=== PATIENT | male | born 1935 | race Caucasian/White ===

== ENCOUNTER 2017-03-24 11:34 | Observation (INO) ==
--- NOTE | 2017-03-24 12:04 | Emergency Department Note ---
Weakness HPI - General Chief complaint: Weakness Stated complaint: Weakness Time Seen by Provider: 03/24/17 11:55 Source: patient Mode of arrival: EMS Limitations: no limitations - History of Present Illness HPI Narrative: Patient presents, unable to care for himself at home. Known discogenic back disease, and multiple surgeries. Has chronic neuropathy of the lower extremities. Unfortunately, 2 falls in the last several weeks. One which occurred yesterday, fall from toilet onto the floor. EMS, evaluation yesterday , chart reviewed. X-ray imaging negative at that time. Discharged to home with home health. Home health has not yet arrived, patient has been essentially in the same sitting position since he arrived home yesterday. Able to pass urine with a jimena Dakotah, able to use a bedpan but shifting his weight. Unable to Lift his R leg and R foot; states that this is new onset. Also feels generally weak. No fevers or chills, no shortness of breath or cough. No urinary symptoms. No hesitancy above his baseline. No loss of bowel control. Low back pain above his tailbone, dull ache; new compared to his usual low back pain. Taking Lyrica, no other meds. Retired longshoreman. unable to care for him at home, EMS called - Related Data Home Medications Medication Instructions Recorded Confirmed aspirin 81 mg chewable tablet 81 mg PO QDAY tab 02/26/15 03/09/17 bimatoprost 0.01 % eye drops 1 drp OPHTHALMIC QPM ml 02/26/15 03/09/17 timolol 0.5 % eye drops 1 drp OPHTHALMIC QDAY ml 02/26/15 03/09/17 bicalutamide 50 mg tablet 50 mg PO QDAY 05/22/15 03/09/17 Previous Rx's Medication Instructions Recorded Disability Parking Permit #1 each 10/14/15 albuterol sulfate HFA 90 180 mcg INHALATION Q6H PRN #18 g 10/20/16 mcg/actuation aerosol inhaler valsartan 80 mg tablet 80 mg PO QDAY 90 Days 01/10/17 pregabalin 75 mg capsule 75 mg PO TID 90 Days 02/13/17 triamterene 37.5 1 tab-cap PO QDAY 90 Days 02/13/17 mg-hydrochlorothiazide 25 mg capsule wheelchair See Dose Instructions .ROUTE 08/08/17 .MEDSUPPLY #1 each Bedside Commode #1 each 03/16/17 Wheelchair Seat Cushion #1 each 03/16/17 Allergies Allergy/AdvReac Type Severity Reaction Status Date / Time No Known Drug Allergies Allergy Verified 03/24/17 11:37 Review of Systems All systems ED: reviewed and negative except as stated. Past Medical History - Past Medical History Attestation: Yes: The following information was validated with the patient. Medical history: Reports: other (obesity; discogenic back disease) Surgical history ED: Reports: orthopedic, other, other (partial colectomy, cervical spine fusion; multiple lumbar disc surgeries) Family history: Reports: non-contributory - Social History smoking status: Former smoker Physical Exam - General Limitations: no limitations General appearance: alert, other (oderate pain behaviors, shifting in bed) - Head Head exam: atraumatic, normocephalic - Eye Eye exam: Present: normal appearance - ENT ENT exam: normal exam, mucous membranes moist - Neck Neck exam: Present: normal inspection. Absent: tenderness - Chest Chest inspection: Present: normal inspection - Respiratory Respiratory exam: Present: normal lung sounds bilaterally. Absent: respiratory distress - Cardiovascular Cardiovascular exam: Present: regular rate, normal rhythm - Abdominal Exam Abdominal exam: Present: soft. Absent: tenderness - Extremities Exam Extremities exam: Present: other (full range of motion hip and knee; flat deep tendon reflex at the right knee; 3/5 ight foot dorsiflexion, 5 out of 5 plantar flexion, intact left) - Neurological Exam Neurological exam: Present: alert, oriented X3, other (diffuse sensation lossright foot) - Psychiatric Psychiatric exam: Present: normal affect, anxious - Skin Skin exam: Present: warm, dry Course - Reevaluation(s) Reevaluation #1: patient with morbid obesity, profound weakness secondary to deconditioning, spinal stenosis severe withadvancedneurogenic claudication; now right ankle avulsion fracture with dorsal flexion weakness Requested case management for possible assistance with additional cares versus rehab placement Time: 14:00 Reevaluation #2: Patient discussed with Dr. Spencer for admission, willing on observational status, possible placement Monday to AC Time: 15:23 Vital Signs Temperature 97.8 F 03/24/17 11:34 Pulse Rate 63 03/24/17 11:34 Respiratory Rate 16 03/24/17 11:34 Blood Pressure 140/57 03/24/17 11:34 Pulse Oximetry (%) 92 03/24/17 11:34 Temperature 97.8 F 03/24/17 11:34 Pulse Rate 65 03/24/17 14:45 Respiratory Rate 16 03/24/17 11:34 Blood Pressure 135/62 03/24/17 14:01 Pulse Oximetry (%) 92 03/24/17 14:45 Weakness - Lab Data Lab results reviewed: Yes I reviewed the patient's lab results. Result diagrams: 03/24/17 12:12 Lab Results 03/24/17 03/24/17 Range/Units 12:12 12:12 WBC 11.1 H (4.5-11.0) K/mcL RBC 4.60 (4.50-5.90) M/mcL Hgb 13.2 L (13.5-16.5) g/dL Hct 40.2 L (41.0-55.0) % POC Hct 39.0 L (41.0-55.0) % MCV 87.4 (80.0-100.0) fL MCH 28.6 (26.0-34.0) pg MCHC 32.7 (31.0-36.0) g/dL RDW 13.7 (11.5-14.5) % Plt Count 189 (140-440) K/mcL MPV 10.6 H (7.4-10.4) fL Gran % 71.5 (38.0-78.0) % Lymph % (Auto) 20.3 (15.5-49.0) % Cherry % (Auto) 5.4 (1.0-12.0) % Eos % (Auto) 2.6 (0.0-7.0) % Baso % (Auto) 0.2 (0.0-2.0) % Gran # 7.9 (1.8-8.0) K/mcL Lymph # (Auto) 2.2 (1.5-4.8) K/mcL Cherry # (Auto) 0.6 (0.1-0.9) K/mcL Eos # (Auto) 0.3 (0.0-0.7) K/mcL Baso # (Auto) 0 (0.0-0.3) K/mcL POC Sodium 141 (133-145) mmol/L POC Potassium 3.7 (3.3-5.1) mmol/L POC Chloride 100 (96-108) mmol/L POC Total CO2 27 (22-30) mmol/L POC BUN 19 (8-23) mg/dl POC Creatinine 0.9 (0.7-1.2) mg/dl POC Glucose 115 H (70-105) mg/dL POC WB Ioniz Calcium 1.17 (1.16-1.32) mmol/L - Radiology Data Radiology results reviewed: Yes I reviewed the patient's radiology results. severest progressive spinal stenosi T12-L1 Avulsion fracture right ankle Disposition Pt seen by SHOE COVERER/PA only: No Clinical Impression: Weakness generalized, Right foot drop, Spinal stenosis of lumbar region, Neurogenic claudication Avulsion fracture of right ankle Qualifiers: Encounter type: initial encounter Fracture type: closed Qualified Code(s): S82.891A - Other fracture of right lower leg, initial encounter for closed fracture Obesity Qualifiers: Obesity type: unspecified obesity type Obesity classification: adult class 2 ( BMI 35 ? 39.9) Serious obesity comorbidity presence: unspecified whether serious comorbidity present Body mass index: BMI 38.0-38.9 Qualified Code(s): E66.9 - Obesity, unspecified; Z68.38 - Body mass index (BMI) 38.0-38.9, adult Peripheral neuropathy Qualifiers: Peripheral neuropathy type: polyneuropathy, unspecified Qualified Code(s): G62.9 - Polyneuropathy, unspecified Disposition: Xfer As Outpt/Obs ([facility]) Condition: Fair Additional Instructions: observation with therapy over the weekend; ankle splint in place possible LTAC placement Monday Referrals: Jony Christianson MD [Primary Care Provider] -
--- NOTE | 2017-03-24 13:42 | Cat Scan Report ---
CLINICAL INFORMATION:Reason for Exam:fall, R leg weakness, foot drop (subacute) COMPARISON: 08/21/06 FINDINGS: The spine was imaged without contrast from the mid T9-S2. Sagittal and coronal reformats were created. There is normal alignment and healing following prior discectomy with interbody and posterior fusion at L to three and L3-4. There lateral posterior pedicle screws connected with rods from L2 through L4. There are screw holes in the body of L5 following removal of old screws. Laminectomy has been performed at these levels and there is also some bone graft material.. Severe disc space narrowing is present at L5-S1. There are medium-sized spurs along the posterior border that this protruding into the central canal. There is also moderate arthritis in the facets. There is moderate central canal and severe bilateral neural foraminal stenosis. Moderate disc space narrowing is present at L1-2 there is a large amount of gas in the nucleus pulposus. There is a posterior bulge and moderate arthritis in the facets causing moderate central canal stenosis. The T12-L1 disc is severely narrowed and degenerated and there is small amount gas in the disc. Posteriorly there is a ring of spurs and small ulcer. Moderate arthritis is present in the facets. There is severe spinal canal stenosis. Less severe disc space narrowing and degeneration are present at T10-11 and T11-12. Comparison with the prior exam from 2006 shows the spinal canal stenosis at T12-L1 has become significantly worse. The other levels remain stable. IMPRESSION: Severe spinal canal stenosis at T12-L1 due to spurs and bulging disc. Moderate spinal canal stenosis at L1-2 and L5-S1 Severe stenosis of the neural foramina bilaterally at L5-S1 No fracture Interpreted and Authenticated by: Pardeep Mathews 03/24/17
--- NOTE | 2017-03-24 13:45 | Cat Scan Report ---
ORIGINAL REPORT History: Fell with right leg pain and weakness with a right foot drop Findings: The pelvis was imaged without contrast. Sagittal and coronal reformats were created. No pelvic or hip fracture present. Post surgical changes are present in the lower lumbar spine. There is severe disc degeneration and arthritis at L5-S1. This is described in more detail on the lumbar spine CT report. The SI joints are normal in width. There is mild arthritis in the right SI joint. The symphysis pubis is normal. 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 There are multiple dense calcifications within the prostate. Prostate is mildly enlarged. There are are numerous diverticula in the descending and sigmoid colon. There is a row of anastomotic sutures in the proximal sigmoid colon. There is no obstruction. 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 Interpreted and Authenticated by: Pardeep Mathews 03/24/17
--- NOTE | 2017-03-24 13:50 | XRay Report ---
HISTORY: Reason for Exam:fall, weakness FINDINGS: There is a cluster of old ununited avulsion fracture fragments inferior to the medial malleolus. There is a 3 x 9 mm avulsion fracture fragment contiguous with the inferior border of the medial malleolus which was not present on the prior study done on 04/28/11. The other fragments were seen on the prior study. There is moderate soft tissue swelling both medially and laterally around the ankle. The ankle joint space is normal in width and alignment. There is another old well-corticated ununited avulsion fracture off of the inferior bladder border of the lateral malleolus. No joint effusion is detected. IMPRESSION: New avulsion fracture off the inferior border of the medial malleolus Interpreted and Authenticated by: Pardeep Mathews 03/24/17
[2017-03-24 14:51] LABS: Basophils # (Auto) 0 K/mcL (0.0-0.3); Basophils % (Auto) 0.2 % (0.0-2.0); Eosinophils # (Auto) 0.3 K/mcL (0.0-0.7); Eosinophils % (Auto) 2.6 % (0.0-7.0); Granulocytes % (Auto) 71.5 % (38.0-78.0); Lymphocytes # (Auto) 2.2 K/mcL (1.5-4.8); Lymphocytes % (Auto) 20.3 % (15.5-49.0); Mean Cell Volume 87.4 fL (80.0-100.0); Mean Corpuscular HGB Conc 32.7 g/dL (31.0-36.0); Mean Corpuscular Hemoglobin 28.6 pg (26.0-34.0); Monocytes # (Auto) 0.6 K/mcL (0.1-0.9); Monocytes % (Auto) 5.4 % (1.0-12.0); Platelet Count 189 K/mcL (140-440); Red Cell Distribution Width 13.7 % (11.5-14.5)
--- NOTE | 2017-03-24 16:02 | Internal Med History&Physical ---
Medical - H&P: HPI Patient information: Note initiated : 03/24/17 at 4:00 pm Patient: Antelmo Martinez 81 y/o M admitted on for Weakness. History of present illness: Mr. Martinez is a 81 year old man with a history of spinal stenosis, and previous cervical and lumbar spine fusions, who is been noticing progressive weakness of his right lower extremity for some time now. In the last 2 weeks he is fallen at least twice, and reports that his legs just feel like jelly. He has chronic low back pain also. His also notes that he is chronic urinary incontinence and occasional fecal incontinence, but states these are related to previous prostate cancer surgery and anal fissure repair. The patient presented to the emergency room for the second time today, and said he is just too weak to manage even getting in and out of his wheelchair at home. He now also has right ankle pain, and was diagnosed with an avulsion fracture of the medial malleolus. In the ER he demonstrated weakness, and was clearly very high risk for falls, so case management was contacted. They came up with a plan to admit the patient for physical and occupational therapy evaluation, and I think hope to transfer him to a longer term rehab at some point. Otherwise, the patient notes he has had some increased wheezing lately, associated with mild dyspnea on exertion. He says his O2 saturations were low in his doctor's office, and he just recently had pulmonary function tests done. He denies fever or chills, headaches or dizziness, new eye or ear symptoms, sore throat or cough, chest pain or palpitations, changes in his breathing, abdominal pain, nausea or vomiting, diarrhea or constipation, dysuria. The patient does not believe that he has been evaluated by a neurosurgeon, to look at other options for his spinal stenosis. [facility] Medical History Severe spinal stenosis, status post fusion, not a candidate for further surgeries. Generally uses a cane and a walker to get around, but right leg can give out on him. Lately he has been using a wheelchair. Gout (Acute) History of prostate cancer (Acute) Hypertension, essential (Acute) Septic bursitis of elbow (Acute) Surgical History History of colectomy (Acute) partial History of fusion of cervical spine (Acute) cervical and two lower back fusions History of hemorrhoidectomy (Acute) History of hernia surgery (Acute) Medication List albuterol sulfate HFA 90 mcg/actuation (ProAir HFA) 180 mcg Inhalation Q6H PRN aspirin 81 mg PO QDAY bicalutamide 50 mg PO QDAY bimatoprost 0.01% 1 drp Ophthalmic QPM pregabalin (Lyrica) 75 mg PO TID 90 days timolol 0.5% 1 drp Ophthalmic QDAY ? triamterene-hydrochlorothiazid 37.5-25 mg (Dyazide) 1 tab-cap PO QDAY 90 days valsartan (Diovan) 80 mg PO QDAY 90 days Combigan eyedrops twice daily His says he received an estrogen injection recently Allergies/Adverse Reactions No Known Drug Allergies Allergy Family History Father--father in his 70s with a history of prostate cancer and heart disease. Mother -mother after an MN in her 60s. 2 sisters in their 80s, one related to a hip fracture, one related to diabetes and kidney failure. Social History smoking status: The patient smoked only from the age of [age], and then quit. He says he previously drank heavier, but quit around 1969. He now drinks rarely. He does not use drugs. He is and lives with his . Medical - H&P: Meds Home Medications Medication Instructions Recorded Confirmed Type aspirin 81 mg chewable tablet 81 mg PO HS tab 02/26/15 03/24/17 History bimatoprost 0.01 % eye drops 1 drp BOTH EYES QPM ml 02/26/15 03/24/17 History bicalutamide 50 mg tablet 50 mg PO HS 05/22/15 03/24/17 History valsartan 80 mg tablet 80 mg PO QDAY 90 Days 01/10/17 03/24/17 Rx Brimonidine Tartrate/Timolol 1 drop BOTH EYES BID 03/24/17 03/24/17 History [Combigan Eye Drops] Pregabalin [Lyrica] 75 mg PO QAM 03/24/17 03/24/17 History Pregabalin [Lyrica] 150 mg PO HS 03/24/17 03/24/17 History Triamterene/Hydrochlorothiazid 1 tab PO QDAY 03/24/17 03/24/17 History [Dyazide 37.5-25 Capsule] Allergies Allergy/AdvReac Type Severity Reaction Status Date / Time No Known Drug Allergies Allergy Verified 03/24/17 17:11 Medical - H&P: Exam - Constitutional Vitals: Temp Pulse Resp BP Pulse Ox 97.8 F 65 16 134/57 98 03/24/17 11:34 03/24/17 15:27 03/24/17 11:34 03/24/17 15:27 03/24/17 15:27 On exam, the patient is lying in bed, in no acute distress. Head: Normocephalic, atraumatic. Eyes: PERRLA, EOMI, anicteric. Ears: He has bilateral hearing aids. TMs and canals are mostly clear, with minimal cerumen. Pharynx: Is clear. Teeth are in good repair. Neck is supple without obvious lymphadenopathy, JVD, thyromegaly, bruits. Cardiac exam: Shows regular rate and rhythm with normal S1 and S2, without obvious murmurs, rubs, gallops. Lungs have a few crackles at the bases, but are otherwise clear, without rales, rhonchi, wheezes. Abdomen: Is quite obese, but soft and nontender. There is a periumbilical hernia noted. There are well-healed lower abdominal scars. There is also an inguinal hernia. Bowel sounds are normoactive. Extremities: Show trace edema at the ankles. No cyanosis or clubbing is noted. Neurologic exam: Patient is alert and oriented 3, calm and cooperative. Cranial nerves are grossly intact. Motor exam: He has good strength in his left lower extremity, and upper extremities. Right lower extremity has weakness with leg extension, as well as right foot plantar flexion weakness/foot drop. He has reasonable hip flexor strength bilaterally. Medical - H&P: Reslt - Labs CBC & Chem 7: 03/24/17 12:12 Labs: Short CBC 03/24/17 Range/Units 12:12 WBC 11.1 H (4.5-11.0) K/mcL Hgb 13.2 L (13.5-16.5) g/dL Hct 40.2 L (41.0-55.0) % Plt Count 189 (140-440) K/mcL March 24: Chemistry panel: Is essentially normal. Next Urinalysis: Is essentially normal. Right ankle x-ray: A avulsion fracture of the inferior border of the medial malleolus. CT scan of the lumbar spine: Show severe spinal canal stenosis at T12-L1 due to spurs and a bulging disc. Moderate spinal canal stenosis at L1 to and L5-S1. Severe stenosis of the neural foramina bilaterally at L5-S1. No fractures. Pelvis CT: No pelvis or hip fracture. Bilateral hip arthritis. 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 Moderate-sized fat- containing left inguinal hernia extending into the scrotum. March 22, 2017: PFTs: Mild airflow obstruction. Possible respiratory muscle fatigue. Mildly reduced diffusion capacity. Medical - H&P: A/P (1) Avulsion fracture of right ankle Current visit: Yes Status: Acute (2) Spinal stenosis of lumbar region Current visit: Yes Status: Chronic (3) Obesity Current visit: Yes Status: Chronic (4) Hypertension, essential Current visit: No Status: Chronic - Narrative A/P Narrative: #1. Neurologic/orthopedic. Patient presents with chronic spinal stenosis, causing right leg weakness, which appears to be worsening. He has had 2 falls in the last week. He now presents with an ankle fracture. He is too weak to move around at all at home, and therefore will need extra assistance to get him back to being mobile, before he can go home. -Admit to observation. -Physical therapy and Occupational Therapy evaluations. -If physical therapy does not recommend an ankle support, touch base with orthopedics about how to manage the avulsion fracture. He is currently in an Aircast. -Manage pain. #2. Morbid obesity. Patient also has elevated hemoglobin and hematocrit, and is certainly at risk for both sleep apnea and pickwickian syndrome. Monitor oxygenation. 3. Hypertension. Continue valsartan, aspirin, Dyazide 4. CODE STATUS: Full code. 5. Pulmonary. Mildly abnormal PFTs. I believe this patient has also been evaluated by Dr. Guo from pulmonary. 6. DVT prophylaxis: Subcu heparin. 7. Mild hypothyroidism. Mild elevated TSH. It might be worthwhile trying him on low-dose levothyroxine , to see if this changes issues of fatigue, etc. 8. Glaucoma Continue eyedrops. Today's visit took approximately 50 minutes, to review the patient's case with the ER MD, review his old records, review test results, interview and examine him, review plan of care with the patient and his .
[2017-03-24] MEDS ORDERED: NALOXONE HCL 0.4 MG/ML VIAL IV PRN (16:50)
[2017-03-24] MEDS ORDERED: ACETAMINOPHEN 325 MG TABLET PO PRN (16:50)
[2017-03-24] MEDS ORDERED: CALCIUM CARBONATE 500 MG TAB.CHEW CHEWED PRN (16:50)
[2017-03-24] MEDS ORDERED: DOCUSATE SODIUM 100 MG CAPSULE PO PRN (16:50)
[2017-03-24] MEDS ORDERED: MAGNESIUM HYDROXIDE 30 ML ORAL.SUSP PO PRN (16:50)
[2017-03-24] MEDS ORDERED: ONDANSETRON 4 MG/2 ML VIAL IV PRN (16:50)
[2017-03-24] MEDS: 0.9 % SODIUM CHLORIDE 10 ML SYRINGE IV SCH (23:06)
[2017-03-25] MEDS: 0.9 % SODIUM CHLORIDE 10 ML SYRINGE IV SCH ×3 (05:48→20:19)
[2017-03-25 06:27] LABS: ALT/SGPT 10 U/l (0-40); Albumin 3.5 gm/dL (3.2-5.2); Albumin/Globulin Ratio 1.5 (1.0-2.3); Alkaline Phosphatase 57 U/L (39-117); Bilirubin,Direct < 0.2 mg/dL (0.0-0.3); Blood Urea Nitrogen 19 mg/dl (8-23); Gamma Glutamyl Transpeptidase 7 U/L (8-61); Uric Acid 7.9 mg/dL (2.5-8.0)
[2017-03-25] MEDS: PREGABALIN 75 MG CAPSULE PO SCH ×2 (08:52→20:17)
[2017-03-25] MEDS: ENOXAPARIN 40 MG/0.4 ML SYRINGE SQ SCH (08:52)
[2017-03-25] MEDS: LOSARTAN 50 MG TABLET PO SCH (08:52)
[2017-03-25] MEDS: Brimonidine Tartrate/Timolol [Combigan 0.2%-0.5%] Eye Drops OU SCH ×2 (10:13→20:19)
[2017-03-25] MEDS: TRIAMTERENE/HYDROCHLOROTHIAZID 1 TABLET PO SCH (10:13)
--- NOTE | 2017-03-25 12:44 | Internal Med Progress Note ---
Medical - PN: Subj Patient information: Note initiated : 03/25/17 at 12:44 pm Patient: Antelmo Martinez 81 y/o M admitted on 03/24/17 for Weakness. Interval history: March 24, 2017: History of present illness: Mr. Martinez is a 81 year old man with a history of spinal stenosis, and previous cervical and lumbar spine fusions, who is been noticing progressive weakness of his right lower extremity for some time now. In the last 2 weeks he is fallen at least twice, and reports that his legs just feel like jelly. He has chronic low back pain also. His also notes that he is chronic urinary incontinence and occasional fecal incontinence, but states these are related to previous prostate cancer surgery and anal fissure repair. The patient presented to the emergency room for the second time today, and said he is just too weak to manage even getting in and out of his wheelchair at home. He now also has right ankle pain, and was diagnosed with an avulsion fracture of the medial malleolus. In the ER he demonstrated weakness, and was clearly very high risk for falls, so case management was contacted. They came up with a plan to admit the patient for physical and occupational therapy evaluation, and I think hope to transfer him to a longer term rehab at some point. Otherwise, the patient notes he has had some increased wheezing lately, associated with mild dyspnea on exertion. He says his O2 saturations were low in his doctor's office, and he just recently had pulmonary function tests done. He denies fever or chills, headaches or dizziness, new eye or ear symptoms, sore throat or cough, chest pain or palpitations, changes in his breathing, abdominal pain, nausea or vomiting, diarrhea or constipation, dysuria. The patient does not believe that he has been evaluated by a neurosurgeon, to look at other options for his spinal stenosis. March 25: Today, the patient continues to note lower extremity weakness. He reports both numbness and weakness of both legs today, and says he was just too weak to stand up for physical therapy today. He is not having a lot of pain however. He also notes that his muscles in his legs feel twitchy like they are going to spasm Otherwise he denies fever chills, chest pain or shortness of breath, abdominal pain, nausea or vomiting or diarrhea. He continues to have occasional bladder and fecal incontinence. He has had epidural steroid shots in the past. At least once it worked quite well, and once it caused quite a bit of increased pain. - Constitutional Vitals: Vital Signs Temp Pulse Resp BP Pulse Ox 97.7 F 60 20 131/60 97 03/25/17 11:25 03/25/17 04:00 03/25/17 11:25 03/25/17 11:25 03/25/17 11:25 Period Temp Pulse Resp BP Sys/Sharma Pulse Ox Last 24 Hr 96.8 F-97.7 F 60-68 16-20 110-150/60-74 91-97 Intake and Output 03/24/17 03/25/17 03/25/17 21:59 05:59 13:59 Intake Total 400 / 400 660 / 660 Output Total 550 / 550 450 / 450 Balance -150 / -150 210 / 210 Weight 288 lb Intake & Output: Intake & Output 03/24/17 03/25/17 03/25/17 21:59 05:59 13:59 Intake Total 400 / 400 660 / 660 Output Total 550 / 550 450 / 450 Balance -150 / -150 210 / 210 Weight 288 lb Intake: Oral 400 / 400 660 / 660 Output: Void Amount 550 / 550 450 / 450 Other: Meal Dinner Lunch Percent of Meal Consumed 100% 100% Feeding Ability Independent # Voids 1 1 On exam, the patient is sitting up in bed, eating lunch. He has a great deal of difficulty helping to pull himself forward to sit up. Neck is supple without obvious lymphadenopathy or JVD. Cardiac exam shows regular rate and rhythm. Lungs: Clear to auscultation. Abdomen is soft and nontender. Extremities show about 1+ edema. Neurologic: He is alert and oriented, calm and cooperative. He continues to have about 4 out of 5 hip flexor strength bilaterally. He has decreased strength in his feet, especially with plantar extension, right is worse than the left. Medical - PN: Obj Da - Labs CBC & Chem 7: 03/24/17 12:12 03/25/17 04:34 Labs: Abnormal Lab Results 03/25/17 04:34 Glucose 115 H GGT 7 L March 24: Chemistry panel: Is essentially normal. Next Urinalysis: Is essentially normal. Right ankle x-ray: A avulsion fracture of the inferior border of the medial malleolus. CT scan of the lumbar spine: Show severe spinal canal stenosis at T12-L1 due to spurs and a bulging disc. Moderate spinal canal stenosis at L1 to and L5-S1. Severe stenosis of the neural foramina bilaterally at L5-S1. No fractures. Pelvis CT: No pelvis or hip fracture. Bilateral hip arthritis. 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 Moderate-sized fat- containing left inguinal hernia extending into the scrotum. March 22, 2017: PFTs: Mild airflow obstruction. Possible respiratory muscle fatigue. Mildly reduced diffusion capacity. Meds: Medications Acetaminophen (Tylenol) 650 mg PO Q6HP PRN PRN Reason: PAIN/FEVER > 101 Hydrocodone Bitart/Acetaminophen ([place] 5/325mg) 1 tab PO Q4HP PRN PRN Reason: Pain Aspirin (Aspirin) 81 mg PO HS [facility] Bicalutamide (Casodex) 50 mg PO HS [facility] Calcium Carbonate/Glycine (Tums) 1,000 mg CHEWED Q4HP PRN PRN Reason: Dyspepsia Docusate Sodium (Colace) 100 mg PO BID PRN PRN Reason: Constipation Enoxaparin Sodium (Lovenox) 40 mg SQ DAILY [facility] Last Admin: 03/25/17 08:52 Dose: 40 mg Losartan Potassium (Cozaar) 50 mg PO DAILY [facility] Last Admin: 03/25/17 08:52 Dose: 50 mg Magnesium Hydroxide (Milk Of Magnesia) 30 ml PO DAILYP PRN PRN Reason: Constipation Methylprednisolone (Medrol Dose Pack) 1 packet PO UD [facility] Naloxone HCl (Narcan) 0.1 mg IV Q2MIN PRN PRN Reason: Opiate Reversal Ondansetron HCl (Zofran) 4 mg IV Q6HP PRN PRN Reason: Nausea And Vomiting Bimatoprost [Lumigan ] 0.01% Ophthalmic Drops 1 dose OU HS [facility] Brimonidine Tartrate /Timolol [Combigan 0 .2%-0.5%] Eye Drops 1 dose OU BID [facility] Last Admin: 03/25/17 10:13 Dose: 1 dose Pregabalin (Lyrica) 75 mg PO QAM [facility] Last Admin: 03/25/17 08:52 Dose: 75 mg Pregabalin (Lyrica) 150 mg PO HS [facility] Sodium Chloride (Saline Flush) 10 ml IV Q8 [facility] Last Admin: 03/25/17 05:48 Dose: 10 ml Triamterene/HCTZ (Maxzide 25) 1 tab PO DAILY [facility] Last Admin: 03/25/17 10:13 Dose: 1 tab Medical - PN: A/P - Time Spent With Patient Total time spent is greater than 50% in coordination of care (as documented) at patient's floor/unit and/or counseling patient: 25 - 35 minutes (1) Avulsion fracture of right ankle Status: Acute Current Visit: Yes (2) Spinal stenosis of lumbar region Status: Chronic Current Visit: Yes (3) Obesity Status: Chronic Current Visit: Yes (4) Hypertension, essential Status: Chronic Current Visit: No - Narrative A/P Narrative: #1. Neurologic/orthopedic. Patient presents with chronic spinal stenosis, causing right greater than left leg weakness, which appears to be worsening. He has had 2 falls in the last week. He now presents with an ankle fracture. He is too weak to move around at all at home, and therefore will need extra assistance to get him back to being mobile, before he can go home. -Admitted to observation. -Physical therapy and Occupational Therapy evaluations. -Aircast for his evulsion fracture. He should probably stay only partial weightbearing if they can get him up. -Add trial of a Medrol Dosepak, to see if this offers him any relief of his symptoms. I do think he should have follow-up with a neurosurgeon to see if there is anything further that can be done. . -Manage pain. #2. Morbid obesity. Patient also has elevated hemoglobin and hematocrit, and is certainly at risk for both sleep apnea and pickwickian syndrome. Monitor oxygenation. 3. Hypertension. Reasonable control. Continue valsartan, aspirin, Dyazide 4. CODE STATUS: Full code. 5. Pulmonary. Mildly abnormal PFTs. I believe this patient has also been evaluated by Dr. Guo from pulmonary. 6. DVT prophylaxis: Subcu heparin. 7. Mild hypothyroidism. Mild elevated TSH. It might be worthwhile trying him on low-dose levothyroxine , to see if this changes issues of fatigue, etc. 8. Glaucoma Continue eyedrops. Medical - PN: Qual - VTE Deep Vein Thrombosis/Pulmonary Embolism Present on Admission: No
[2017-03-25] MEDS ORDERED: methylPREDNISolone 1 PACKET TABLET PO SCH (12:45)
[2017-03-25] MEDS: ASPIRIN 81 MG TAB.CHEW PO SCH (20:17)
[2017-03-25] MEDS: BIMATOPROST 0.01% OU SCH (20:19)
[2017-03-25] MEDS: BICALUTAMIDE 50 MG TABLET PO SCH (21:25)
[2017-03-26] MEDS: 0.9 % SODIUM CHLORIDE 10 ML SYRINGE IV SCH ×3 (05:38→20:31)
[2017-03-26 06:11] LABS: ALT/SGPT 10 U/l (0-40); Albumin 3.5 gm/dL (3.2-5.2); Albumin/Globulin Ratio 1.5 (1.0-2.3); Alkaline Phosphatase 56 U/L (39-117); Bilirubin,Direct < 0.2 mg/dL (0.0-0.3); Blood Urea Nitrogen 21 mg/dl (8-23); Gamma Glutamyl Transpeptidase 6 U/L (8-61); Uric Acid 7.9 mg/dL (2.5-8.0)
[2017-03-26] MEDS: methylPREDNISolone 1 PACKET TABLET PO SCH (07:30)
[2017-03-26] MEDS: TRIAMTERENE/HYDROCHLOROTHIAZID 1 TABLET PO SCH (08:54)
[2017-03-26] MEDS: LOSARTAN 50 MG TABLET PO SCH (08:54)
[2017-03-26] MEDS: ENOXAPARIN 40 MG/0.4 ML SYRINGE SQ SCH (08:54)
[2017-03-26] MEDS: PREGABALIN 75 MG CAPSULE PO SCH ×2 (08:54→20:30)
[2017-03-26] MEDS: Brimonidine Tartrate/Timolol [Combigan 0.2%-0.5%] Eye Drops OU SCH ×2 (08:54→20:29)
--- NOTE | 2017-03-26 11:11 | Internal Med Progress Note ---
Medical - PN: Subj Patient information: Note initiated : 03/26/17 at 11:11 am Patient: Antelmo Martinez 81 y/o M admitted on 03/24/17 for Weakness. Interval history: March 24, 2017: History of present illness: Mr. Martinez is a 81 year old man with a history of spinal stenosis, and previous cervical and lumbar spine fusions, who is been noticing progressive weakness of his right lower extremity for some time now. In the last 2 weeks he is fallen at least twice, and reports that his legs just feel like jelly. He has chronic low back pain also. His also notes that he is chronic urinary incontinence and occasional fecal incontinence, but states these are related to previous prostate cancer surgery and anal fissure repair. The patient presented to the emergency room for the second time today, and said he is just too weak to manage even getting in and out of his wheelchair at home. He now also has right ankle pain, and was diagnosed with an avulsion fracture of the medial malleolus. In the ER he demonstrated weakness, and was clearly very high risk for falls, so case management was contacted. They came up with a plan to admit the patient for physical and occupational therapy evaluation, and I think hope to transfer him to a longer term rehab at some point. Otherwise, the patient notes he has had some increased wheezing lately, associated with mild dyspnea on exertion. He says his O2 saturations were low in his doctor's office, and he just recently had pulmonary function tests done. He denies fever or chills, headaches or dizziness, new eye or ear symptoms, sore throat or cough, chest pain or palpitations, changes in his breathing, abdominal pain, nausea or vomiting, diarrhea or constipation, dysuria. The patient does not believe that he has been evaluated by a neurosurgeon, to look at other options for his spinal stenosis. March 25: Today, the patient continues to note lower extremity weakness. He reports both numbness and weakness of both legs today, and says he was just too weak to stand up for physical therapy today. He is not having a lot of pain however. He also notes that his muscles in his legs feel twitchy like they are going to spasm Otherwise he denies fever chills, chest pain or shortness of breath, abdominal pain, nausea or vomiting or diarrhea. He continues to have occasional bladder and fecal incontinence. He has had epidural steroid shots in the past. At least once it worked quite well, and once it caused quite a bit of increased pain. March 26: Today, the patient notes he continues to have lower extremity numbness and weakness. He is not having much in the way of pain. He says he was able to sit on the side of the bed with physical therapy today, but is much too weak to even attempt standing. His goal is to be strong enough to at least transfer from bed to chair and chair to commode, although he would certainly like to walk again if that is within the realm of possibility. Otherwise he denies fever or chills, chest pain or palpitations, shortness of breath, abdominal pain, nausea or vomiting, diarrhea or constipation. He continues to have bladder incontinence. - Constitutional Vitals: Vital Signs Temp Pulse Resp BP Pulse Ox 96.6 F L 58 L 20 157/74 91 03/26/17 06:45 03/26/17 03:45 03/26/17 06:45 03/26/17 06:45 03/26/17 06:45 Period Temp Pulse Resp BP Sys/Sharma Pulse Ox Last 24 Hr 96.6 F-98.5 F 58-65 18-22 130-157/60-97 91-97 Intake and Output 03/25/17 03/26/17 03/26/17 21:59 05:59 13:59 Intake Total 1100 / 1100 700 / 700 360 / 360 Output Total 725 / 725 350 / 350 225 / 225 Balance 375 / 375 350 / 350 135 / 135 Weight 288 lb Intake & Output: Intake & Output 03/25/17 03/26/17 03/26/17 21:59 05:59 13:59 Intake Total 1100 / 1100 700 / 700 360 / 360 Output Total 725 / 725 350 / 350 225 / 225 Balance 375 / 375 350 / 350 135 / 135 Weight 288 lb Intake: Oral 1100 / 1100 700 / 700 360 / 360 Output: Void Amount 725 / 725 350 / 350 225 / 225 Other: Meal Dinner Breakfast Percent of Meal Consumed 100% 100% Feeding Ability Assist with Tray Set Up # Voids 3 On exam, the patient is sitting up in bed, watching TV. He still has a great deal of difficulty helping to pull himself forward to sit up. Neck is supple without obvious lymphadenopathy or JVD. Cardiac exam shows regular rate and rhythm. Lungs: Clear to auscultation. Abdomen is soft and nontender. Extremities show about 1+ edema slightly more marked on the right.. Neurologic: He is alert and oriented, calm and cooperative. He continues to have about 4 out of 5 hip flexor strength bilaterally. He has decreased strength in his feet, especially with plantar extension, right is worse than the left. Medical - PN: Obj Da - Labs CBC & Chem 7: 03/24/17 12:12 03/26/17 04:32 Labs: Abnormal Lab Results 03/26/17 03/25/17 04:32 04:34 Glucose 115 H GGT 6 L 7 L March 26: CMP is within normal limits. March 24: Chemistry panel: Is essentially normal. CBC: white blood cell count 11,000, hemoglobin 13, hematocrit 40 Urinalysis: Is essentially normal. Right ankle x-ray: A avulsion fracture of the inferior border of the medial malleolus. CT scan of the lumbar spine: Show severe spinal canal stenosis at T12-L1 due to spurs and a bulging disc. Moderate spinal canal stenosis at L1 to and L5-S1. Severe stenosis of the neural foramina bilaterally at L5-S1. No fractures. Pelvis CT: No pelvis or hip fracture. Bilateral hip arthritis. 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 Moderate-sized fat- containing left inguinal hernia extending into the scrotum. March 22, 2017: PFTs: Mild airflow obstruction. Possible respiratory muscle fatigue. Mildly reduced diffusion capacity. Meds: Medications Acetaminophen (Tylenol) 650 mg PO Q6HP PRN PRN Reason: PAIN/FEVER > 101 Last Admin: 03/25/17 21:29 Dose: 650 mg Hydrocodone Bitart/Acetaminophen ([place] 5/325mg) 1 tab PO Q4HP PRN PRN Reason: Pain Aspirin (Aspirin) 81 mg PO HS [facility] Last Admin: 03/25/17 20:17 Dose: 81 mg Bicalutamide (Casodex) 50 mg PO HS [facility] Last Admin: 03/25/17 21:25 Dose: 50 mg Calcium Carbonate/Glycine (Tums) 1,000 mg CHEWED Q4HP PRN PRN Reason: Dyspepsia Docusate Sodium (Colace) 100 mg PO BID PRN PRN Reason: Constipation Enoxaparin Sodium (Lovenox) 40 mg SQ DAILY [facility] Last Admin: 03/26/17 08:54 Dose: 40 mg Losartan Potassium (Cozaar) 50 mg PO DAILY [facility] Last Admin: 03/26/17 08:54 Dose: 50 mg Magnesium Hydroxide (Milk Of Magnesia) 30 ml PO DAILYP PRN PRN Reason: Constipation Methylprednisolone (Medrol Dose Pack) 1 packet PO DAILY [facility] Last Admin: 03/26/17 07:30 Dose: 1 packet Naloxone HCl (Narcan) 0.1 mg IV Q2MIN PRN PRN Reason: Opiate Reversal Ondansetron HCl (Zofran) 4 mg IV Q6HP PRN PRN Reason: Nausea And Vomiting Bimatoprost [Lumigan ] 0.01% Ophthalmic Drops 1 dose OU HS [facility] Last Admin: 03/25/17 20:19 Dose: 1 dose Brimonidine Tartrate /Timolol [Combigan 0 .2%-0.5%] Eye Drops 1 dose OU BID [facility] Last Admin: 03/26/17 08:54 Dose: 1 dose Pregabalin (Lyrica) 75 mg PO QAM [facility] Last Admin: 03/26/17 08:54 Dose: 75 mg Pregabalin (Lyrica) 150 mg PO HS [facility] Last Admin: 03/25/17 20:17 Dose: 150 mg Sodium Chloride (Saline Flush) 10 ml IV Q8 [facility] Last Admin: 03/26/17 05:38 Dose: 10 ml Triamterene/HCTZ (Maxzide 25) 1 tab PO DAILY [facility] Last Admin: 03/26/17 08:54 Dose: 1 tab Medical - PN: A/P - Time Spent With Patient Total time spent is greater than 50% in coordination of care (as documented) at patient's floor/unit and/or counseling patient: 25 - 35 minutes (1) Avulsion fracture of right ankle Status: Acute Current Visit: Yes (2) Spinal stenosis of lumbar region Status: Chronic Current Visit: Yes (3) Obesity Status: Chronic Current Visit: Yes (4) Hypertension, essential Status: Chronic Current Visit: No - Narrative A/P Narrative: #1. Neurologic/orthopedic. Patient presents with chronic spinal stenosis, causing right greater than left leg weakness, which appears to be worsening. He has had 2 falls in the last week. He now presents with an ankle fracture. He is too weak to move around at all at home, and therefore will need extra assistance to get him back to being mobile, before he can go home. -Continue physical therapy and Occupational Therapy .. -Aircast for his avulsion fracture. He should probably stay only partial weightbearing if they can get him up. -Added trial of a Medrol Dosepak, to see if this offers him any relief of his symptoms. I do think he should have follow-up with a neurosurgeon to see if there is anything further that can be done. . -Manage pain. #2. Morbid obesity. Patient certainly at risk for both sleep apnea and pickwickian syndrome. Monitor oxygenation. 3. Hypertension. Reasonable control. Continue valsartan, aspirin, Dyazide 4. CODE STATUS: Full code. 5. Pulmonary. Mildly abnormal PFTs. I believe this patient has also been evaluated by Dr. Guo from pulmonary. 6. DVT prophylaxis: Subcu heparin. 7. Mild hypothyroidism. Mild elevated TSH. It might be worthwhile trying him on low-dose levothyroxine , to see if this changes issues of fatigue, etc. 8. Glaucoma Continue eyedrops. Approximately 25 minutes was spent today reviewing the patient's test results, interviewing and examining him, reviewing his case with physical therapy, and contacting orthopedics. Medical - PN: Qual - VTE Deep Vein Thrombosis/Pulmonary Embolism Present on Admission: No
[2017-03-26] MEDS: HYDROcodone/APAP 5/325MG TABLET PO PRN ×2 (13:30→20:30)
[2017-03-26] MEDS: BIMATOPROST 0.01% OU SCH (20:29)
[2017-03-26] MEDS: ASPIRIN 81 MG TAB.CHEW PO SCH (20:30)
[2017-03-26] MEDS: BICALUTAMIDE 50 MG TABLET PO SCH (20:31)
[2017-03-27] MEDS: 0.9 % SODIUM CHLORIDE 10 ML SYRINGE IV SCH ×2 (05:00→14:23)
[2017-03-27] MEDS: PREGABALIN 75 MG CAPSULE PO SCH (09:00)
[2017-03-27] MEDS: LOSARTAN 50 MG TABLET PO SCH (09:00)
[2017-03-27] MEDS: ENOXAPARIN 40 MG/0.4 ML SYRINGE SQ SCH (09:00)
[2017-03-27] MEDS: TRIAMTERENE/HYDROCHLOROTHIAZID 1 TABLET PO SCH (09:00)
[2017-03-27] MEDS: methylPREDNISolone 1 PACKET TABLET PO SCH (09:00)
[2017-03-27] MEDS: Brimonidine Tartrate/Timolol [Combigan 0.2%-0.5%] Eye Drops OU SCH (09:01)
--- NOTE | 2017-03-27 11:29 | Discharge Summary ---
Medical - DS: Prov Patient information: Note initiated : 03/27/17 at 11:25 am Patient: Antelmo Martinez 81 y/o M admitted on 03/24/17 for Weakness. Date of admission: 03/24/17 16:20 Discharge date: 03/27/17 Primary care physician: Jony Christianson, phone number [phone] Admitting clinician: Urszula Serna Attending physician on discharge: Urszula Serna Medical - DS: Meds - Discharge Medications Active and Home Medications: . Discharge medications: Medrol Dosepak, today's date #2 of 7 Tylenol 650 mg every 6 hours as needed Aspirin 81 mg nightly Casodex 50 mg nightly Lumigan eyedrops 0.01% 1 drop OU nightly Combigan eyedrops 0.2/0.5% 1 drop OU twice daily Tums 1000 mg every 4 hours as needed Colace 100 mg p.o. twice daily as needed Lovenox 40 mg subcu daily [place] 5/325 1 tab every 4 hours as needed Valsartan 80 mg daily Milk of magnesia 30 mL daily as needed Naloxone 0.1 mg IV as needed Zofran 4 mg p.o. or IV every 6 hours as needed Lyrica 75 mg every morning, 150 mg nightly Maxide 37.525 1 daily Previous home Medications: aspirin 81 mg chewable tablet 81 mg PO HS tab 02/26/15 [History Confirmed 03/24 Last Taken 03/23/17] bimatoprost 0.01 % eye drops 1 drp BOTH EYES QPM ml 02/26/15 [History Confirmed 03/24/17 Last Taken 03/23/17] bicalutamide 50 mg tablet 50 mg PO HS 05/22/15 [History Confirmed 03/24/17 Last Taken 03/23/17] valsartan 80 mg tablet 80 mg PO QDAY 90 Days 01/10/17 [Rx Confirmed 03/24/17 Last Taken 03/24/17] Brimonidine Tartrate/Timolol [Combigan Eye Drops] 1 drop BOTH EYES BID 03/24/17 [History Confirmed 03/24/17 Last Taken 03/24/17] Pregabalin [Lyrica] 75 mg PO QAM 03/24/17 [History Confirmed 03/24/17 Last Taken 03/24/17] Pregabalin [Lyrica] 150 mg PO HS 03/24/17 [History Confirmed 03/24/17 Last Taken 03/23/17] Triamterene/Hydrochlorothiazid [Dyazide 37.5-25 Capsule] 1 tab PO QDAY 03/24/17 [History Confirmed 03/24/17 Last Taken 03/24/17] . Medical - DS: Hosp Hospital course: Mr. Martinez is a 81 year old M March 24, 2017: History of present illness: Mr. Martinez is a 81 year old man with a history of spinal stenosis, and previous cervical and lumbar spine fusions, who is been noticing progressive weakness of his right lower extremity for some time now. In the last 2 weeks he is fallen at least twice, and reports that his legs just feel like jelly. He has chronic low back pain also. His also notes that he is chronic urinary incontinence and occasional fecal incontinence, but states these are related to previous prostate cancer surgery and anal fissure repair. The patient presented to the emergency room for the second time today, and said he is just too weak to manage even getting in and out of his wheelchair at home. He now also has right ankle pain, and was diagnosed with an avulsion fracture of the medial malleolus. In the ER he demonstrated weakness, and was clearly very high risk for falls, so case management was contacted. They came up with a plan to admit the patient for physical and occupational therapy evaluation, and I think hope to transfer him to a longer term rehab at some point. Otherwise, the patient notes he has had some increased wheezing lately, associated with mild dyspnea on exertion. He says his O2 saturations were low in his doctor's office, and he just recently had pulmonary function tests done. He denies fever or chills, headaches or dizziness, new eye or ear symptoms, sore throat or cough, chest pain or palpitations, changes in his breathing, abdominal pain, nausea or vomiting, diarrhea or constipation, dysuria. The patient does not believe that he has been evaluated by a neurosurgeon, to look at other options for his spinal stenosis. March 25: Today, the patient continues to note lower extremity weakness. He reports both numbness and weakness of both legs today, and says he was just too weak to stand up for physical therapy today. He is not having a lot of pain however. He also notes that his muscles in his legs feel twitchy like they are going to spasm Otherwise he denies fever chills, chest pain or shortness of breath, abdominal pain, nausea or vomiting or diarrhea. He continues to have occasional bladder and fecal incontinence. He has had epidural steroid shots in the past. At least once it worked quite well, and once it caused quite a bit of increased pain. March 26: Today, the patient notes he continues to have lower extremity numbness and weakness. He is not having much in the way of pain. He says he was able to sit on the side of the bed with physical therapy today, but is much too weak to even attempt standing. His goal is to be strong enough to at least transfer from bed to chair and chair to commode, although he would certainly like to walk again if that is within the realm of possibility. Otherwise he denies fever or chills, chest pain or palpitations, shortness of breath, abdominal pain, nausea or vomiting, diarrhea or constipation. He continues to have bladder incontinence. March 27: Hospital course: As noted above, patient was admitted with progressive lower extremity weakness and numbness, and has fallen at least twice while trying to transfer from his wheelchair. His not strong enough to help with transfers, and patient was felt unsafe to be at home. His family reports today, that prior to 2 weeks ago the patient could transfer safely, but has had progressively worsening lower extremity weakness over the last 2 weeks. I do not believe he is ever seen a neurosurgeon. Today, the patient is without much change. Physical therapy was able to use a stand and sit device to get him out of bed and put him in a chair this morning. He notes he still has numbness and severe weakness of both lower legs, and cannot support himself at all. He denies significant pain. Otherwise, he denies fever chills, chest pain or palpitations, shortness of breath, abdominal pain, nausea or vomiting, diarrhea or constipation. He does have chronic intermittent bowel and bladder incontinence. [facility] Medical History Severe spinal stenosis, status post fusion, not a candidate for further surgeries. Generally uses a cane and a walker to get around, but right leg can give out on him. Lately he has been using a wheelchair. Gout (Acute) History of prostate cancer (Acute) Hypertension, essential (Acute) Septic bursitis of elbow (Acute) Surgical History History of colectomy (Acute) partial History of fusion of cervical spine (Acute) cervical and two lower back fusions History of hemorrhoidectomy (Acute) History of hernia surgery (Acute) Allergies/Adverse Reactions No Known Drug Allergies Allergy Family History Father--father in his 70s with a history of prostate cancer and heart disease. Mother -mother after an [place] in her 60s. 2 sisters in their 80s, one related to a hip fracture, one related to diabetes and kidney failure. Social History smoking status: The patient smoked only from the age of [age], and then quit. He says he previously drank heavier, but quit around 1969. He now drinks rarely. He does not use drugs. He is and lives with his . On exam, he is sitting up in a chair, in no acute distress. Neck is supple without obvious lymphadenopathy or JVD. Cardiac exam shows regular rate and rhythm. Lungs: Clear to auscultation. Abdomen is soft and nontender. Extremities show about 1+ edema slightly more marked on the right.. Neurologic: He is alert and oriented, calm and cooperative. Today, while sitting in a chair, he really cannot lift either knee, or move either foot. Assessment and plan: #1. Neurologic/orthopedic. Patient presents with chronic spinal stenosis, causing right greater than left leg weakness, which appears to be worsening. He has had 2 falls in the last week. He now presents with an ankle fracture. He is too weak to move around at all at home, and therefore will need extra assistance to get him back to being mobile, before he can go home. Current his family, his lower extremity weakness has gotten markedly worse in the last 2 weeks. -He will be transferred to rehab today. Continue physical therapy and Occupational Therapy .. -Aircast for his avulsion fracture. He should stay only partial weightbearing if they can get him up. -Added trial of a Medrol Dosepak, to see if this offers him any relief of his symptoms. I do think he should have follow-up with a neurosurgeon to see if there is anything further that can be done. This was discussed with the patient and his family at length today. . -Manage pain. #2. Morbid obesity. Patient certainly at risk for both sleep apnea and pickwickian syndrome. Monitor oxygenation. 3. Hypertension. Reasonable control. Continue valsartan, aspirin, Dyazide 4. CODE STATUS: Full code. 5. Pulmonary. Mildly abnormal PFTs. I believe this patient has also been evaluated by Dr. Guo from pulmonary. 6. DVT prophylaxis: Subcu heparin. 7. Mild hypothyroidism. Mild elevated TSH. It might be worthwhile trying him on low-dose levothyroxine , to see if this changes issues of fatigue, etc. 8. Glaucoma Continue eyedrops. Today's visit took approximately 40 minutes, to review patient's test results, review him at our multidisciplinary team meeting, interview and examine the patient, meet with the patient and his family for discussion of various treatment plans, and write orders. Discharge diagnosis: Worsening spinal stenosis and peripheral neuropathy, status post falls. An Secondary discharge diagnosis: Right bimalleolar ankle fracture, a avulsion. Morbid obesity Hypertension Glaucoma - Time Spent with Patient Total time spent providing and/or coordinating discharge services: Greater than 30 minutes Medical - DS: Exam - Constitutional Vitals: Vital Signs Temp Pulse Resp BP Pulse Ox 03/27/17 11:16 97.5 F 20 151/70 92 03/27/17 07:12 96.6 F L 20 147/72 91 03/27/17 04:11 98.2 F 66 18 117/61 94 03/26/17 23:31 97.6 F 60 18 138/64 93 03/26/17 19:56 97.9 F 68 18 148/75 96 03/26/17 15:53 97.4 F 20 149/63 92 03/26/17 11:30 96.8 F L 20 152/71 90 Intake and Output 03/26/17 03/27/17 03/27/17 21:59 05:59 13:59 Intake Total 360 / 360 Output Total 400 / 400 101 / 101 Balance -40 / -40 -101 / -101 - Intake: Oral 360 / 360 Output: Void Amount 400 / 400 100 / 100 # of times incontinent of urine Other: Meal Dinner Percent of Meal Consumed 100% Feeding Ability Independent # Voids 2 # Bowel Movements 1 Weight 286 lb Medical - DS: Data Labs on day of discharge: March 26: CMP is within normal limits. March 24: Chemistry panel: Is essentially normal. CBC: white blood cell count 11,000, hemoglobin 13, hematocrit 40, platelets 189 ,000, normal differential Urinalysis: Is essentially normal. Right ankle x-ray: A avulsion fracture of the inferior border of the medial malleolus. CT scan of the lumbar spine: Show severe spinal canal stenosis at T12-L1 due to spurs and a bulging disc. Moderate spinal canal stenosis at L1-2 and L5-S1. Severe stenosis of the neural foramina bilaterally at L5-S1. No fractures. Pelvis CT: No pelvis or hip fracture. Bilateral hip arthritis. 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 Moderate-sized fat- containing left inguinal hernia extending into the scrotum. Medical - DS: A/P - Patient/Caregiver Discharge Instructions Activity: as per physical therapy Diet: Low Sodium (2gm) Additional Instructions: 1. Continue physical and occupational therapy. 2. Please arrange for evaluation by a neurosurgeon, JC. Other Amb Orders: Aspiration Precautions Location: Determined By Patient Fall Risk Location: Determined By Patient OT Discharge Order Location: Determined By Patient Physical Therapy at Discharge - General Location: Determined By Patient - Problem Maintenance (1) Avulsion fracture of right ankle Status: Acute Qualifiers: Encounter type: initial encounter Fracture type: closed Qualified Code(s) : S82.891A - Other fracture of right lower leg, initial encounter for closed fracture (2) Spinal stenosis of lumbar region Status: Chronic (3) Obesity Status: Chronic Qualifiers: Obesity type: unspecified obesity type Obesity classification: adult class 2 (BMI 35 ? 39.9) Serious obesity comorbidity presence: unspecified whether serious comorbidity present Body mass index: BMI 38.0-38.9 Qualified Code(s) : E66.9 - Obesity, unspecified; Z68.38 - Body mass index (BMI) 38.0-38.9, adult (4) Hypertension, essential Status: Chronic - Follow up Plan Follow up with: Jony Christianson MD [Primary Care Provider] - Disposition: [facility] Prognosis: Fair Rehab Potential: Fair Overall status at discharge: patient is not back to baseline Medical - DS: Qual - VTE Deep Vein Thrombosis/Pulmonary Embolism Present on Admission: No
[2017-03-27] MEDS: HYDROcodone/APAP 5/325MG TABLET PO PRN (14:21)
== END 2017-03-27 15:00 ==
LOC: MEDSUR 11:34 → ED 11:34 → MEDSUR 16:00
PROVIDERS: ADMIT Internal Medicine; ATTEND Internal Medicine